=== PATIENT | female | born 1960 | race Caucasian/White ===

== ENCOUNTER → 2024-09-10 07:41 | Outpatient (REF) | payer BC, SELFPAY | LOC: HWRAD 07:41 | PROVIDERS: ATTENDING PHYSICIAN Nurse Practitioner Family | DX: R39.9 Unspecified symptoms and signs involving the genitourinary system (principal) | CPT/HCPCS: 76770 ==

== ENCOUNTER → 2024-09-25 13:33 | Outpatient (REF) | payer BC, SELFPAY | LOC: RAD 13:33 | PROVIDERS: ATTENDING PHYSICIAN Nurse Practitioner Family | DX: G47.30 Sleep apnea, unspecified (principal) | CPT/HCPCS: 70360; 71046 ==

== ENCOUNTER → 2024-10-29 09:16 | Outpatient (REF) | payer BC, SELFPAY | LOC: PAVMRI 09:16 | PROVIDERS: ATTENDING PHYSICIAN Nurse Practitioner Family | DX: K76.9 Liver disease, unspecified (principal) | CPT/HCPCS: 74183; A9575 ==

== ENCOUNTER → 2025-02-10 08:08 | Outpatient (REF) | payer BC, SELFPAY | LOC: WDC 08:08 | PROVIDERS: ATTENDING PHYSICIAN Nurse Practitioner Adult Health | DX: Z12.31 Encounter for screening mammogram for malignant neoplasm of breast (principal) | CPT/HCPCS: 77063; 77067 ==